=== PATIENT | female | born 1985 | race Caucasian/White ===

== ENCOUNTER 2016-04-04 16:04 | Inpatient (IN) | payer BC ==
[2016-04-04] MEDS ORDERED: CARBOPROST TROMETHAMINE 250 MCG/ML 1 ML AMP IM PRN (17:15)
[2016-04-04] MEDS ORDERED: OXYTOCIN 30 UNITS/500 ML NS 30 UNIT in SALINE 1 500ML.BAG IV SCH (17:15)
[2016-04-04] MEDS ORDERED: TERBUTALINE 1 MG/ML VIAL SQ PRN (17:15)
[2016-04-04] MEDS ORDERED: METHYLERGONOVINE 0.2 MG/ML 1 ML AMP IM PRN (17:15)
[2016-04-04] MEDS ORDERED: OXYTOCIN 10 UNIT/ML 1 ML VIAL IM PRN (17:15)
[2016-04-04] MEDS ORDERED: LIDOCAINE 1% (PF) 10 MG/ML (30 ML SDV) SQ PRN (17:15)
[2016-04-04 17:42] VITALS: BMI 44.4
[2016-04-04 17:54] LABS: Anisocytosis Slight; Basophils % (A) 0 %; CH 23.9; CHCM 31.8; Eosinophils # (A) 0.2 k/uL (0-0.7); Eosinophils % (A) 2 %; HDW 3.81; HGB 10.3 gm/dL (11.4-16.0); Hypochromasia Moderate; Luc # (Auto) 0.17; Luc % (Auto) 2; Lymphocytes # (A) 1.3 k/uL (1.0-4.8); Lymphocytes % (A) 12 %; MCH 23.6 pg (25.0-35.0); MCHC 31.3 g/dL (31.0-37.0); MCV 75.4 fL (80.0-100.0); Mean Platelet Volume 7.9; Microcytosis Slight; Monocytes # (A) 0.4 k/uL (0-1.0); Monocytes % (A) 3 %; Neutrophils # (A) 9.2 k/uL (1.3-7.7); Neutrophils % (A) 81 %; Poikilocytosis Slight; RBC 4.37 m/uL (3.80-5.40); RDW 16.6 % (11.5-15.5); WBC 11.3 k/uL (3.8-10.6); WBC (Perox) 11.76
[2016-04-04] MEDS: LACTATED RINGERS 1,000 ML IV SCH ×2 (17:56→22:09)
[2016-04-04] MEDS ORDERED: BUPIVACAINE (PF) 0.25% 30 ML VIAL ONE (22:00)
[2016-04-04] MEDS ORDERED: SODIUM CHLORIDE 0.9% 100 ML BAG ONE (22:00)
[2016-04-04] MEDS ORDERED: fentaNYL (PF) 50 MCG/ML 5 ML AMP ONE (22:00)
--- NOTE | 2016-04-05 00:19 | P.HPOB ---
History of Present Illness H&P Date: 04/04/16 Chief Complaint: Spontaneous rupture of membranes at 37-4/7 weeks' gestation This is a 30-year-old 4 para 2012 woman who presents with spontaneous rupture of membranes at approximately 1430 on 04/04/2016. She reports clear fluid however no regular contractions at the time of rupture. Upon presentation to labor and delivery triage rupture of membranes was confirmed. She was not regularly cheng and her cervix was approximate 2 cm dilated and very posterior. Her has been remarkable for large for gestational age estimate based on third trimester ultrasound. She was also known Rh-. She did receive Rogaine appropriately at 28 weeks gestation. Obstetric history is significant for spontaneous miscarriage in 2010, vaginal delivery at 38 weeks in 2012, vaginal delivery at 38 weeks in 2014. Laboratory data: Blood type O-, antibody screen negative, rubella immune, VDRL nonreactive, hepatitis B surface antigen negative, HIV negative, diabetes screening within normal limits, group B strep negative. Review of Systems All systems: negative Past Medical History Past Medical History: No Reported History History of Any Multi-Drug Resistant Organisms: None Reported Past Surgical History: No Surgical Hx Reported Past Anesthesia/Blood Transfusion Reactions: No Reported Reaction Smoking Status: Never smoker Past Alcohol Use History: None Reported Past Drug Use History: None Reported - Past Family History Mother Family Medical History: No Reported History Medications and Allergies Home Medications Medication Instructions Recorded Confirmed Type Zth-Nqbv-Mnqcw Acid 1 tab PO DAILY 03/24/15 04/04/16 History [-U Capsule] Allergies Allergy/AdvReac Type Severity Reaction Status Date / Time Penicillins Allergy Mild Rash/Hives Verified 04/04/16 16:27 Exam - Vital Signs Vital signs: Vital Signs Temp Pulse Resp BP Pulse Ox 04/04/16 17:06 97.5 F L 100 20 129/64 99 Intake and Output 04/04/16 04/04/16 04/05/16 14:59 22:59 06:59 Other: Weight 124.738 kg Patient Weight 04/05/16 06:59 Weight 124.738 kg Upon my initial evaluation the patient's completely dilated with urge to push. Results Result Diagrams: 04/04/16 17:39 Abnormal Lab Results - Last 24 Hours (Table) 04/04/16 Range/Units 17:39 WBC 11.3 H (3.8-10.6) k/uL Hgb 10.3 L (11.4-16.0) gm/dL Hct 33.0 L (34.0-46.0) % MCV 75.4 L (80.0-100.0) fL MCH 23.6 L (25.0-35.0) pg RDW 16.6 H (11.5-15.5) % Neutrophils # 9.2 H (1.3-7.7) k/uL Assessment and Plan (1) Large for gestational age fetus Status: Acute (2) Active labor at term Status: Acute (3) Rh negative status during Status: Acute Plan: This is a 30-year-old 4 para 2 woman with spontaneous rupture of membranes at 37 and one sevenths weeks gestation. She is Rh- and group B strep negative. I anticipate normal spontaneous vaginal delivery.
[2016-04-05] MEDS ORDERED: diphenhydrAMINE 50 MG CAP PO PRN (00:24)
[2016-04-05] MEDS ORDERED: LANOLIN CREAM 5 GM TUBE TOPICAL PRN (00:24)
[2016-04-05] MEDS ORDERED: BENZOCAINE/MENTHOL SPRAY 1 GM/SPRAY AEROSOL TOPICAL PRN (00:24)
[2016-04-05] MEDS ORDERED: diphenhydrAMINE 25 MG CAP PO PRN (00:24)
[2016-04-05] MEDS ORDERED: HYDROCORTISONE 2.5% RECTAL CREAM 30 GM TUBE RECTAL PRN (00:24)
[2016-04-05] MEDS ORDERED: SIMETHICONE 80 MG CHEWABLE PO PRN (00:24)
[2016-04-05] MEDS ORDERED: ZOLPIDEM 5 MG TAB PO PRN (00:24)
[2016-04-05] MEDS ORDERED: WITCH HAZEL 1 EACH MED..PAD TOPICAL PRN (00:24)
[2016-04-05] MEDS ORDERED: diphenhydrAMINE 50 MG/ML 1 ML VIAL IVP PRN ×2 (00:24)
--- NOTE | 2016-04-05 00:24 | P.PROBDLV ---
Vaginal Delivery Note - . Vaginal Delivery Note: Findings: Female in the vertex presentation right occiput anterior. Nuchal cord 1. Weight 8 lbs. 2 oz., Apgars of 8 at 1 minute and 9 at 5 minutes. Periurethral laceration. Intact, three-vessel cord placenta. EBL approximately 100 mL's. Delivery summary: This is a 30-year-old 4 para 2011 woman who presented with spontaneous rupture of membranes, not in labor at 37-4/7 weeks' gestation. Following admission she underwent Pitocin induction of labor. She reached approximately 3 cm dilated and was quite uncomfortable therefore received an epidural anesthetic. She had rupture of membranes at 1430 and reached complete cervical dilation by approximately 2350. She was repositioned, prepped and draped in the dorsal lithotomy position. With maternal effort the head did crown from the right occiput anterior position. With delivery of the head the nose and mouth were bulb suctioned and a nuchal cord 1 was reduced. Patient was placed in the Lisa position for delivery of the anterior shoulder which then delivered without difficulty. The rest the delivered onto the field. She had an approximately 10 minute second stage of labor. The nose and mouth were further bulb suctioned. The was placed on the maternal abdomen and the cord was clamped and cut Apgars were 8 at 1 minute and 9 at 5 minutes and weight was 8 lbs. 2 oz. An intact, three-vessel cord placenta was expressed and the patient received Pitocin following the third stage of labor. The perineum was inspected and noted to be intact however there was a small proximally 1 cm periurethral laceration that was actively bleeding. This was infused with lidocaine and closed with interrupted [id number] suture of 4- 0 Vicryl. This did not appear to be impinging on the urethral meatus. The uterus was then massaged and was noted to be firm at the level of the umbilicus. EBL was approximately 100 mL's. Both mother and infant were doing well post delivery in the room.
[2016-04-05] MEDS ORDERED: OXYTOCIN 30 UNITS/500 ML NS 30 UNIT in SALINE 1 500ML.BAG IV SCH (00:30)
[2016-04-05] MEDS: ACETAMINOPHEN TAB 325 MG TAB PO PRN ×2 (06:38→23:51)
[2016-04-05] MEDS ORDERED: BUPIVACAINE (PF) 0.25% 25 ML, fentaNYL (PF) 200 MCG in SODIUM CHLORIDE 0.9% 71 ML EPIDURAL ONE (07:17)
--- NOTE | 2016-04-05 08:18 | P.PNOBGVD ---
Subjective - Subjective Principal diagnosis: day 1/2 Interval history: Breast-feeding successfully, complaining of some uterine cramping that is improving. Patient reports: Reports appetite normal, Reports voiding normally, Reports pain well controlled, Denies dizzy ambulation : doing well Objective - Latest Vital Signs Latest vital signs: Vital Signs Temp Pulse Resp BP Pulse Ox 04/05/16 02:15 97.1 F L 80 18 119/64 04/05/16 01:45 84 18 120/58 04/05/16 01:15 92 16 130/67 98 04/05/16 01:00 86 17 128/61 98 04/05/16 00:45 91 18 131/58 98 04/05/16 00:30 86 16 117/61 98 04/05/16 00:15 97.8 F 93 18 118/65 98 04/04/16 17:06 97.5 F L 100 20 129/64 99 Intake and Output 04/04/16 04/05/16 04/05/16 22:59 06:59 14:59 Intake Total 600 Balance 600 Intake: Oral 600 Other: # Voids 1 Weight 124.738 kg - Exam Extremities: Present: edema Abdomen: Present: normal appearance, soft Uterus: Present: normal - Labs Labs: Abnormal Lab Results - Last 24 Hours (Table) 04/04/16 Range/Units 17:39 WBC 11.3 H (3.8-10.6) k/uL Hgb 10.3 L (11.4-16.0) gm/dL Hct 33.0 L (34.0-46.0) % MCV 75.4 L (80.0-100.0) fL MCH 23.6 L (25.0-35.0) pg RDW 16.6 H (11.5-15.5) % Neutrophils # 9.2 H (1.3-7.7) k/uL Assessment and Plan (1) Large for gestational age fetus Current Visit: Yes Status: Acute Code(s): UKP3661 - SNOMED Code(s): 233045114 (2) Active labor at term Current Visit: No Status: Acute Code(s): OYT0332 - SNOMED Code(s): 22131663 (3) Rh negative status during Current Visit: No Status: Acute Code(s): O09.899 - SUPERVISION OF OTHER HIGH RISK PREGNANCIES, UNSP TRIMESTER SNOMED Code(s): 994701625 (4) Normal spontaneous vaginal delivery Narrative/Plan: day 1 status post normal spontaneous vaginal delivery at 37 and one sevenths weeks gestation. Recovering well. Routine care. Current Visit: No Status: Acute Code(s): O80 - ENCOUNTER FOR FULL-TERM UNCOMPLICATED DELIVERY SNOMED Code(s): 54417123 (5) Nuchal cord, delivered, current hospitalization Current Visit: No Status: Acute Code(s): O69.81X0 - LABOR AND DEL COMP BY CORD AROUND NECK, W/O COMPRSN, UNSP SNOMED Code(s): 530177233
[2016-04-05] MEDS: SENNOSIDES-DOCUSATE SODIUM 1 EACH TAB PO SCH ×2 (08:51→19:47)
[2016-04-05] MEDS ORDERED: Rhogam IMMUNE GLOBULIN 1,500 UNIT/1 ML IM ONE (10:21)
[2016-04-05] MEDS: IBUPROFEN 600 MG TAB PO PRN ×2 (11:15→18:22)
[2016-04-06 00:38] VITALS: RESP 16
[2016-04-06] MEDS: IBUPROFEN 600 MG TAB PO PRN (05:40)
[2016-04-06] MEDS: SENNOSIDES-DOCUSATE SODIUM 1 EACH TAB PO SCH (08:39)
--- NOTE | 2016-04-06 10:53 | P.DS ---
Providers Date of admission: 04/04/16 16:58 Expected date of discharge: 04/06/16 Attending physician: Kaylie High Primary care physician: Stated None - Discharge Diagnosis(es) (1) Large for gestational age fetus Current Visit: Yes Status: Acute (2) Active labor at term Current Visit: No Status: Acute (3) Rh negative status during Current Visit: No Status: Acute (4) Normal spontaneous vaginal delivery Current Visit: No Status: Acute (5) Nuchal cord, delivered, current hospitalization Current Visit: No Status: Acute Hospital Course: This is a 30-year-old 3 now para 3 woman who was admitted with spontaneous rupture of membranes at 37 and one sevenths weeks gestation. She underwent a Pitocin induction of labor. She received an epidural anesthetic. She went on to have an uncomplicated delivery of a liveborn female infant over a small periurethral laceration. Please see the delivery summary for details. The patient's course was unremarkable. By day #1 she was ambulating and voiding without difficulty and her pain was well-controlled. She did have moderate lochia. The did have some low temperatures and was admitted to special care nursery for rule out infection and antibiotics. By day #2 the patient continues to do very well. She had minimal lochia. She was breast-feeding successfully. Her vital signs were stable and her perineum was well healing. She was therefore discharged home with routine instructions for care and follow-up. Procedures: Normal spontaneous vaginal delivery Patient Condition at Discharge: Good Plan - Discharge Summary Discharge Medication List Zpy-Rydb-Zmcav Acid [-U Capsule] 1 tab PO DAILY 03/24/15 [ History] Acetaminophen Tab [Tylenol] 650 mg PO Q4HR PRN #0 tab 04/06/16 [Rx] Ibuprofen [Motrin] 600 mg PO Q6HR PRN #0 tab 04/06/16 [Rx] Follow up Appointment(s)/Referral(s): Kaylie High MD [STAFF PHYSICIAN] - 1 Week Activity/Diet/Wound Care/Special Instructions: Follow-up in the office in 6 weeks . Call with any concerning signs or symptoms including heavy vaginal bleeding, severe abdominal pain, fever greater than 101, swelling or redness of the lower extremities, foul vaginal discharge, or signs of depression. Nothing in the vagina for 6 weeks after delivery, specifically no intercourse. Discharge Disposition: HOME SELF-CARE
[2016-04-06] MEDS: ACETAMINOPHEN TAB 325 MG TAB PO PRN (13:15)
[2016-04-06 16:40] VITALS: BP 132/77; PULSE 84; TEMP 98.2
== END 2016-04-06 16:45 | disposition home or self-care (01) | DRG 775 ==
LOC: FBPOP 16:04 → 4FBP 16:58
PROVIDERS: ADMIT Obstetrics & Gynecology; ATTEND Obstetrics & Gynecology
PROC: 10E0XZZ Delivery of Products of Conception, External Approach (ICD-10-PCS; principal; 2016-04-04)
PROC: 0UQMXZZ Repair Vulva, External Approach (ICD-10-PCS; 2016-04-04)
PROC: 3E0234Z Introduction of Serum, Toxoid and Vaccine into Muscle, Percutaneous Approach (ICD-10-PCS; 2016-04-04)
DX: O69.81X0 Labor and delivery complicated by cord around neck, without compression, not applicable or unspecified (principal); O36.0930 Maternal care for other rhesus isoimmunization, third trimester, not applicable or unspecified; O36.63X0 Maternal care for excessive fetal growth, third trimester, not applicable or unspecified; Z37.0 Single live birth; O71.82 Other specified trauma to perineum and vulva; Z3A.37 37 weeks gestation of pregnancy; Z67.41 Type O blood, Rh negative
CPT/HCPCS: 59025; 84112; 85025; 85461; 88307; 99213

== ENCOUNTER → 2018-08-30 | Outpatient (CLI) | payer BC ==
--- NOTE | 2018-08-30 15:51 | XR ---
EXAMINATION TYPE: XR humerus RT DATE OF EXAM: 08/30/2018 CLINICAL HISTORY: Right humeral pain after injury. TECHNIQUE: Two views of the right humerus are obtained. COMPARISON: None. FINDINGS: There is no acute fracture or dislocation seen in the right humerus. The right shoulder a nd elbow joints appear within normal limits. The overlying soft tissue appears within normal limits. IMPRESSION: No acute fracture or dislocation is evident in the right humerus.
== END | disposition home or self-care (01) ==
LOC: RADXRYALE 15:14
PROVIDERS: ATTEND Internal Medicine
DX: M79.621 Pain in right upper arm (principal)

== ENCOUNTER → 2018-10-19 | Outpatient (CLI) | payer BC ==
[2018-10-19 14:26] LABS: Basophils # (A) 0.1 k/uL (0-0.2); Basophils % (A) 1 %; Eosinophils # (A) 0.2 k/uL (0-0.7); Eosinophils % (A) 2 %; HCT 41.3 % (34.0-46.0); HGB 13.1 gm/dL (11.4-16.0); Lymphocytes # (A) 2.4 k/uL (1.0-4.8); Lymphocytes % (A) 25 %; MCH 24.9 pg (25.0-35.0); MCHC 31.8 g/dL (31.0-37.0); MCV 78.3 fL (80.0-100.0); Mean Platelet Volume 7.2; Microcytosis Slight; Monocytes # (A) 0.4 k/uL (0-1.0); Monocytes % (A) 4 %; Neutrophils # (A) 6.4 k/uL (1.3-7.7); Neutrophils % (A) 66 %; Platelet Count 423 k/uL (150-450); RBC 5.28 m/uL (3.80-5.40); RDW 15.8 % (11.5-15.5); WBC 9.7 k/uL (3.8-10.6)
== END | disposition home or self-care (01) ==
LOC: LABPAT 12:35
PROVIDERS: ATTEND Obstetrics & Gynecology
DX: Z01.812 Encounter for preprocedural laboratory examination (principal); N84.0 Polyp of corpus uteri; N92.0 Excessive and frequent menstruation with regular cycle
CPT/HCPCS: 36415; 85025

== ENCOUNTER → 2018-11-01 | Day surgery (SDC) | payer BC ==
[2018-10-26 14:16] VITALS: BMI 41.9
[~2018-11-01] MED LIST: DEXAMETHASONE SOD PHOSPHATE 10 MG/ML 1 ML VIAL IV ONE; HYDROmorphone 0.5 MG/0.5 ML SYRINGE IVP PRN; KETOROLAC 30 MG/ML 1 ML VIAL ONE; LACTATED RINGERS 1,000 ML IV ONE; LACTATED RINGERS 1,000 ML IV SCH; LIDOCAINE 1% 20 ML VIAL (10MG/ML) FOR IV START INTRADERMA ONE; MIDAZOLAM 2 MG/2 ML VIAL IV PRN; MIDAZOLAM 2 MG/2 ML VIAL ONE; ONDANSETRON 4 MG/2 ML VIAL IVP ONE; PROPOFOL 10 MG/ML 20 ML VIAL IV ONE; SCOPOLAMINE 1.5MG/72HR PATCH TRANSDERM ONE; SODIUM CHLORIDE 0.9% 1,000 ML IV ONE; SUCCINYLCHOLINE CHLORIDE 100 MG/5 ML SYR IV ONE; fentaNYL (PF) 50 MCG/ML 2 ML AMP ONE
[2018-11-01 08:34] VITALS: RESP 16
--- NOTE | 2018-11-01 09:21 | P.OP ---
Date of Procedure: 11/01/18 Preoperative Diagnosis: Menorrhagia, endometrial polyps. Postoperative Diagnosis: Same Procedure(s) Performed: Hysteroscopy, dilatation and curettage, polypectomy, NovaSure endometrial ablation Anesthesia: CIERAA Surgeon: Kaylie High Lead Cargoman #1: Stated None Estimated Blood Loss (ml): 10 IV fluids (ml): 700 Urine output (ml): 200 Pathology: other (Endometrial curettings and endometrial polyps) Condition: stable Disposition: PACU Operative Findings: Endometrial polyps and proliferative appearing tissue. Description of Procedure: Patient is brought to the operating suite where a general anesthetic is administered without difficulty. She's placed in the dorsal lithotomy position. The appropriate timeout is performed to assure proper patient and procedural identification. Urine hCG is negative. Antibiotics are not deemed necessary. The cervix, perineum, vagina are all prepped and draped in the usual sterile fashion. Weighted speculum was placed into the vagina. Bladder is drained for approximately 200 mL of clear yellow urine. Anterior lip of the cervix is grasped with a double-tooth tenaculum. Uterus sounds to a depth of 9 cm in the anteverted position. Cervix was gently and systematically dilated using Hanks dilators. Hysteroscope was then placed and fluid is infused. The cavity is distended. There are number of fleshy-appearing polyps along with proliferative-type appearing tissue. Hysteroscope was removed. A medium sharp curette is used and the polyps are removed and sent to pathology, along with endometrial curettings. At this time the endometrial wand is opened and seated. A uterine length of 6.5 cm, width of 4.6 cm is chosen. The machine is properly calibrated and enabled. For 40 seconds with a power 164 W the procedure is carried out. When the machine shuts off the wand is reduced and removed. Hysteroscope was once again introduced and the cavity is noted to be uniformly blanched. Upon removing the speculum there is a small perforation noted on the cervix which is touched with nitrous stick, and then a [id number] suture of 2-0 Vicryl for excellent hemostasis. All sponge needle and enhancement counts are correct at the end of the procedure. Patient is brought back to the recovery room in very good condition with stable vital signs including a blood pressure of 120/79, pulse 80. Toradol is given prior to leaving the operative suite. Patient will follow-up with me in the office in 2 weeks.
[2018-11-01 09:35] VITALS: TEMP 98
[2018-11-01 10:51] VITALS: BP 122/72; PULSE 64
== END ==
LOC: OR 08:01
PROVIDERS: ATTEND Obstetrics & Gynecology
DX: N84.0 Polyp of corpus uteri (principal); N92.0 Excessive and frequent menstruation with regular cycle; Z88.0 Allergy status to penicillin; Z83.3 Family history of diabetes mellitus; Z82.49 Family history of ischemic heart disease and other diseases of the circulatory system; Z80.0 Family history of malignant neoplasm of digestive organs
CPT/HCPCS: 81025; 88305; 58563; J2250; J1100; J2405; J3010; J1885; J0330; J2704; J1170